=== PATIENT | male | born 2000 | race Caucasian/White ===

== ENCOUNTER 2018-10-01 11:59 | Emergency (ER) | payer MEDICAID, OTHER, SELFPAY ==
[~2018-10-01] VITALS: Ht 180.3 cm; Wt 70.9 kg
[~2018-10-01 11:59] MED LIST: SERO1TAB2 PO; SERO200T PO; TRIA1OI80 TOP
[2018-10-01 13:35] LABS: INFLUENZA A AMPLIFICATION NEGATIVE (NEGATIVE); INFLUENZA B AMPLIFICATION NEGATIVE (NEGATIVE)
[2018-10-01] MEDS ORDERED: AMOX500C PO (14:23)
[2018-10-01 14:38] VITALS: BP 123/68
== END 2018-10-01 14:40 | disposition home or self-care (01) ==
LOC: M ED 11:59
DX: J02.9 Acute pharyngitis, unspecified (principal); D57.3 Sickle-cell trait; F33.9 Major depressive disorder, recurrent, unspecified

== ENCOUNTER → 2021-02-27 | Outpatient (CLI) | payer MEDICAID ==
[~2021-02-27] MED LIST changes: +AMOX500C PO
== END ==
LOC: M OUTALCOH 08:26
PROVIDERS: ATTEND Psychiatry & Neurology Psychiatry
DX: F12.20 Cannabis dependence, uncomplicated (principal)

== ENCOUNTER → 2021-03-17 | Outpatient (RCR) | payer MEDICAID | LOC: M OUTALCOH 03-05 15:22 | PROVIDERS: ATTEND Psychiatry & Neurology Psychiatry | DX: F12.20 Cannabis dependence, uncomplicated (principal) ==

== ENCOUNTER → 2021-04-16 | Outpatient (RCR) | payer MEDICAID | LOC: M OUTALCOH 03-19 11:23 | PROVIDERS: ATTEND Psychiatry & Neurology Psychiatry | DX: F12.20 Cannabis dependence, uncomplicated (principal) ==

== ENCOUNTER 2021-05-13 10:00 | Outpatient (RCR) | payer MEDICAID | END 2021-05-17 | LOC: M OUTALCOH 10:00 | PROVIDERS: ATTEND Psychiatry & Neurology Psychiatry | DX: F12.20 Cannabis dependence, uncomplicated (principal) ==

== ENCOUNTER 2021-06-09 09:00 | Outpatient (RCR) | payer MEDICAID, OTHER | END 2021-06-16 | LOC: M OUTALCOH 09:00 | PROVIDERS: ATTEND Psychiatry & Neurology Psychiatry | DX: F12.20 Cannabis dependence, uncomplicated (principal) ==

== ENCOUNTER 2021-07-14 08:52 | Outpatient (RCR) | payer MEDICAID, OTHER | END 2021-07-17 | LOC: M OUTALCOH 08:52 | PROVIDERS: ATTEND Psychiatry & Neurology Psychiatry | DX: F12.20 Cannabis dependence, uncomplicated (principal) ==

== ENCOUNTER → 2021-08-17 | Outpatient (RCR) | payer OTHER | LOC: M OUTALCOH 07-21 08:59 | PROVIDERS: ATTEND Psychiatry & Neurology Psychiatry | DX: F12.20 Cannabis dependence, uncomplicated (principal) ==

== ENCOUNTER 2021-08-26 12:31 | Outpatient (RCR) | payer OTHER | END 2021-09-14 | LOC: M OUTALCOH 12:31 | PROVIDERS: ATTEND Psychiatry & Neurology Psychiatry | DX: F12.20 Cannabis dependence, uncomplicated (principal) ==

== ENCOUNTER 2021-09-23 12:51 | Outpatient (RCR) | payer OTHER | END 2021-10-15 | LOC: M OUTALCOH 12:51 | PROVIDERS: ATTEND Psychiatry & Neurology Psychiatry | DX: F12.20 Cannabis dependence, uncomplicated (principal) ==

== ENCOUNTER 2021-11-04 13:23 | Outpatient (RCR) | payer OTHER | END 2021-11-14 | LOC: M OUTALCOH 13:23 | PROVIDERS: ATTEND Psychiatry & Neurology Psychiatry | DX: F12.20 Cannabis dependence, uncomplicated (principal) ==